=== PATIENT | female | born 1975 | race Caucasian/White ===

== ENCOUNTER 2017-06-01 16:15 | Emergency (ER) | payer MEDICAID ==
--- NOTE | 2017-06-01 16:55 | EDM.PDOC ---
ED HPI GENERAL MEDICAL PROBLEM - General Chief Complaint: Skin Complaint Stated Complaint: ORAL THRUSH Time Seen by Provider: 06/01/17 16:20 Source of Information: Reports: Patient History Limitations: Reports: No Limitations - History of Present Illness INITIAL COMMENTS - FREE TEXT/NARRATIVE: 41 YO WF presents to ER complaining of recurrence of her tinea corporis and oral thrush after taking an antibiotic recently. Pt reports she has been treated for this in the past and would like to be referred to a specialist for further evaluation and treatment. Pt denies any history of immunocompromise or chemotherapy. Pt denies any fever/chills. Duration: Day(s): (2) Location: Reports: Other (mouth, under arms and under breasts) Quality: Reports: Other (itching) Severity: Mild Improves with: Reports: None Worsens with: Reports: None Associated Symptoms: Reports: No Other Symptoms - Related Data Allergies Allergy/AdvReac Type Severity Reaction Status Date / Time No Known Drug Allergies Allergy Other Verified 08/03/16 17:48 Home Meds: Home Meds Cyclobenzaprine [Flexeril] 10 mg PO BEDTIME 03/24/14 [History] DULoxetine [Cymbalta] 60 mg PO DAILY 03/24/14 [History] Ibuprofen [Motrin] 600 mg PO Q6H PRN 03/24/14 [History] Pentosan Polysulfate Sodium [Elmiron] 100 mg PO TID 03/24/14 [History] Pregabalin [Lyrica] 150 mg PO BID 03/24/14 [History] SitaGLIPtin [Januvia] 100 mg PO DAILY 06/22/16 [History] Clotrimazole [Clotrimazole 1%] 15 gm .XX TID #1 tube 08/03/16 [Rx] Fluconazole [Diflucan] 100 mg PO DAILY #10 tablet 08/03/16 [Rx] Nystatin 30 gm TP TID #30 oint...g. 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, Polycystic Ovaries, , Spontaneous Musculoskeletal History: Reports: Fibromyalgia Neurological History: Reports: Headaches, Chronic, Migraines Psychiatric History: Reports: Antisocial Behaviors Endocrine/Metabolic History: Reports: Diabetes, Type II Hematologic History: Reports: Blood Transfusion(s) Dermatologic History: Reports: Other (See Below) Other Dermatologic History: yeast on bilateral breasts - Infectious Disease History Infectious Disease History: Reports: Chicken Pox - Past Surgical History Female Surgical History: Reports: Tubal Ligation Social & Family History - Family History Family Medical History: Noncontributory - Tobacco Use Smoking Status *Q: Current Every Day Smoker Years of Tobacco use: 15 Packs/Tins Daily: 0.3 Used Tobacco, but Quit: No Second Hand Smoke Exposure: No - Caffeine Use Caffeine Use: Reports: Soda - Alcohol Use Days Per Week of Alcohol Use: 0 - Recreational Drug Use Recreational Drug Use: No ED ROS GENERAL - Review of Systems Review Of Systems: See Below Constitutional: Reports: No Symptoms HEENT: Reports: Throat Pain Respiratory: Reports: No Symptoms Cardiovascular: Reports: No Symptoms Endocrine: Reports: No Symptoms GI/Abdominal: Reports: No Symptoms : Reports: No Symptoms Musculoskeletal: Reports: No Symptoms Skin: Reports: Rash (under arms and under breasts) Neurological: Reports: No Symptoms Psychiatric: Reports: No Symptoms Hematologic/Lymphatic: Reports: No Symptoms Immunologic: Reports: No Symptoms ED EXAM, SKIN/RASH Exam: See Below Exam Limited By: No Limitations General Appearance: Alert, WD/WN, No Apparent Distress Ears: Normal External Exam, Normal Canal, Hearing Grossly Normal, Normal TMs Nose: Normal Inspection, Normal Mucosa, No Blood Throat/Mouth: Normal Inspection, Normal Lips, Normal Teeth, Normal Gums, Normal Oropharynx, Normal Voice, No Airway Compromise Head: Atraumatic, Normocephalic Neck: Normal Inspection, Supple, Non-Tender, Full Range of Motion Respiratory/Chest: No Respiratory Distress, Lungs Clear, Normal Breath Sounds, No Accessory Muscle Use, Chest Non-Tender Cardiovascular: Normal Peripheral Pulses, Regular Rate, Rhythm, No Edema, No Gallop, No JVD, No Murmur, No Rub GI/Abdominal: Normal Bowel Sounds, Soft, Non-Tender, No Organomegaly, No Distention, No Abnormal Bruit, No Mass Back Exam: Normal Inspection, Full Range of Motion, NT Extremities: Normal Inspection, Normal Range of Motion, Non-Tender, No Pedal Edema, Normal Capillary Refill Neurological: Alert, Oriented, CN II-XII Intact, Normal Cognition, Normal Gait, Normal Reflexes, No Motor/Sensory Deficits Psychiatric: Normal Affect, Normal Mood Skin: Rash (papular erythemetous rash under arms and under breasts) Characteristics: Papular, Erythematous Lymphatic: No Adenopathy Departure - Departure Time of Disposition: 16:55 Disposition: Home, Self-Care 01 Condition: Good Clinical Impression: Tinea corporis, Thrush, oral - Discharge Information Prescriptions: Nystatin 60 ml PO TID #120 ml Nystatin 30 gm TP TID #30 oint...g. Referrals: Josh Okeefe MD [Primary Care Provider] - Forms: ED Department Discharge - Assessment/Plan Assessment:: 1. tinea corporis 2. oral thrush Plan: 1. nystatin swish and swallow 2. nystatin ointment 3. follow up with infectious disease or PCP for further evaluation and treatment 4. return to ER for fever or worsening symptoms
[2017-06-01 17:02] VITALS: BP 117/84
== END 2017-06-01 17:15 | disposition home or self-care (01) ==
LOC: KA.ED 16:15
DX: B35.4 Tinea corporis (principal); B37.0 Candidal stomatitis; E11.9 Type 2 diabetes mellitus without complications; Z79.4 Long term (current) use of insulin; F17.210 Nicotine dependence, cigarettes, uncomplicated; Z79.899 Other long term (current) drug therapy
CPT/HCPCS: 99282

== ENCOUNTER 2017-11-09 16:36 | Emergency (ER) | payer MEDICAID ==
[2017-11-09 16:47] VITALS: BP 146/87
--- NOTE | 2017-11-09 17:23 | EDM.PDOC ---
ED HPI GENERAL MEDICAL PROBLEM - General Chief Complaint: Upper Extremity Injury/Pain Stated Complaint: INFECTED R INDEX FINGER Time Seen by Provider: 11/09/17 16:45 Source of Information: Reports: Patient History Limitations: Reports: No Limitations - History of Present Illness INITIAL COMMENTS - FREE TEXT/NARRATIVE: 42 YO WF presents to ER complaining of pain to right index finger which began today. Pt denies any injury to finger. Pt reports woke today with pain and swelling to cuticle of right index finger. Pt was seen in clinic today and was given a "shot: (antibiotics?) and discharged on keflex 500mg PO Q6. Pt reports her pain became worse prompting ER evaluation. Pt denies fever/chills. Onset: Today Location: Reports: Upper Extremity, Right Quality: Reports: Ache Severity: Mild Improves with: Reports: None Worsens with: Reports: None Associated Symptoms: Reports: No Other Symptoms Treatments ULTRASOUND SPECIALIST: Reports: Other (see below) Other Treatments ULTRASOUND SPECIALIST: antibiotics Right 2-Index finger Pain Score (Numeric/FACES): 10 - Related Data Allergies Allergy/AdvReac Type Severity Reaction Status Date / Time No Known Drug Allergies Allergy Other Verified 11/09/17 16:45 Home Meds: Home Meds Cyclobenzaprine [Flexeril] 10 mg PO BEDTIME 03/24/14 [History] DULoxetine [Cymbalta] 60 mg PO DAILY 03/24/14 [History] Ibuprofen [Motrin] 600 mg PO Q6H PRN 03/24/14 [History] Pentosan Polysulfate Sodium [Elmiron] 100 mg PO TID 03/24/14 [History] Pregabalin [Lyrica] 150 mg PO BID 03/24/14 [History] SitaGLIPtin [Januvia] 100 mg PO DAILY 06/22/16 [History] Ibuprofen [Motrin] 600 mg PO Q6H PRN #20 tab 11/09/17 [Rx] traMADol [Ultram] 50 mg PO Q4H PRN #15 tab 11/09/17 [Rx] Past Medical History HEENT History: Reports: Impaired Vision Gastrointestinal History: Reports: GERD, Other (See Below) Other Gastrointestinal History: splenic rupture Genitourinary History: Reports: Other (See Below) Other Genitourinary History: insterstitial cystitis 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, Polycystic Ovaries, , Spontaneous Musculoskeletal History: Reports: Fibromyalgia Neurological History: Reports: Headaches, Chronic, Migraines Psychiatric History: Reports: Antisocial Behaviors Endocrine/Metabolic History: Reports: Diabetes, Type II Hematologic History: Reports: Blood Transfusion(s) Dermatologic History: Reports: Other (See Below) Other Dermatologic History: yeast on bilateral breasts - Infectious Disease History Infectious Disease History: Reports: Chicken Pox - Past Surgical History Head Surgeries/Procedures: Reports: None Female Surgical History: Reports: Tubal Ligation Social & Family History - Family History Family Medical History: Noncontributory - Tobacco Use Smoking Status *Q: Current Every Day Smoker Years of Tobacco use: 0 Packs/Tins Daily: 0 Used Tobacco, but Quit: No Second Hand Smoke Exposure: No - Caffeine Use Caffeine Use: Reports: Soda - Alcohol Use Days Per Week of Alcohol Use: 0 - Recreational Drug Use Recreational Drug Use: No Review of Systems - Review of Systems Review Of Systems: See Below Constitutional: Reports: No Symptoms Eyes: Reports: No Symptoms Ears: Reports: No Symptoms Nose: Reports: No Symptoms Mouth/Throat: Reports: No Symptoms Respiratory: Reports: No Symptoms Cardiovascular: Reports: No Symptoms GI/Abdominal: Reports: No Symptoms Genitourinary: Reports: No Symptoms Musculoskeletal: Reports: Hand Pain Skin: Reports: No Symptoms Neurological: Reports: No Symptoms Psychiatric: Reports: No Symptoms ED EXAM, GENERAL - Physical Exam Exam: See Below Exam Limited By: No Limitations General Appearance: Alert, WD/WN, No Apparent Distress Nose: Normal Inspection, Normal Mucosa, No Blood Throat/Mouth: Normal Inspection, Normal Lips, Normal Teeth, Normal Gums, Normal Oropharynx, Normal Voice, No Airway Compromise Head: Atraumatic, Normocephalic Neck: Normal Inspection, Supple, Non-Tender, Full Range of Motion Respiratory/Chest: No Respiratory Distress, Lungs Clear, Normal Breath Sounds, No Accessory Muscle Use, Chest Non-Tender Cardiovascular: Normal Peripheral Pulses, Regular Rate, Rhythm, No Edema, No Gallop, No JVD, No Murmur, No Rub GI/Abdominal: Normal Bowel Sounds, Soft, Non-Tender, No Organomegaly, No Distention, No Abnormal Bruit, No Mass Back Exam: Normal Inspection, Full Range of Motion, NT Neurological: Alert, Oriented, CN II-XII Intact, Normal Cognition, Normal Gait, Normal Reflexes, No Motor/Sensory Deficits Psychiatric: Normal Affect, Normal Mood Lymphatic: No Adenopathy (subungal hematoma and paronychia to right index finger ) ED TRAUMA EXTREMITY PROCEDURES - I&D Site: right index finger Skin Prep: Providone-Iodine (Betadine) Area Incised With: Needle Drainage: Bloody Sterile Dressinx4(s) Complications: No Course - Vital Signs Last Recorded V/S: Last Vital Signs Temp 36.8 C 11/09/17 16:40 Pulse 64 11/09/17 16:40 Resp 16 11/09/17 16:40 BP 146/87 H 11/09/17 16:40 Pulse Ox 95 11/09/17 16:40 Departure - Departure Time of Disposition: 17:33 Disposition: Home, Self-Care 01 Condition: Good Clinical Impression: Paronychia - Discharge Information Prescriptions: Ibuprofen [Motrin] 600 mg PO Q6H PRN #20 tab PRN Reason: Pain traMADol [Ultram] 50 mg PO Q4H PRN #15 tab PRN Reason: Pain Instructions: Paronychia, [id number] Referrals: Josh Okeefe MD [Primary Care Provider] - Additional Instructions: 1. continue antibiotics 2. ultram 50mg PO Q4-6 PRN pain 3. motrin 600mg PO Q6 PRn pain 4. follow up in clinic for further evaluation and treatment 5. return to ER for worsening symptoms - Assessment/Plan Assessment:: 1. Paronychia to right index finger Plan: 1. continue antibiotics 2. ultram 50mg PO Q4-6 PRN pain 3. motrin 600mg PO Q6 PRn pain 4. follow up in clinic for further evaluation and treatment 5. return to ER for worsening symptoms
[2017-11-09] MEDS ORDERED: Ketorolac 60 MG/2 ML SDV IM ONE (17:27)
== END 2017-11-09 17:35 | disposition home or self-care (01) ==
LOC: KA.ED 16:36
DX: L03.011 Cellulitis of right finger (principal); F17.210 Nicotine dependence, cigarettes, uncomplicated; K21.9 Gastro-esophageal reflux disease without esophagitis; E11.9 Type 2 diabetes mellitus without complications
CPT/HCPCS: 10060; 96372; 99283; J1885

== ENCOUNTER 2019-02-04 18:16 | Emergency (ER) | payer MEDICAID ==
--- NOTE | 2019-02-04 18:26 | EDM.PDOC ---
ED HPI GENERAL MEDICAL PROBLEM - General Chief Complaint: ENT Problem Stated Complaint: RIGHT EAR PAIN/BLEEDING Time Seen by Provider: 02/04/19 18:19 Source of Information: Reports: Patient History Limitations: Reports: No Limitations - History of Present Illness INITIAL COMMENTS - FREE TEXT/NARRATIVE: 43 YO WF presents to ER complaining of right ear pain which began yesterday. Pt reports some drainage from ear and it is becoming more tender when she uses her ear buds. Pt denies any recent URI. Pt denies any fever/chills, no dizziness, no nausea/vomiting. Onset Date: 02/03/19 Duration: Day(s): (2) Location: Reports: Other (right ear pain) Quality: Reports: Ache Severity: Mild Improves with: Reports: None Worsens with: Reports: None Associated Symptoms: Reports: No Other Symptoms - Related Data Allergies Allergy/AdvReac Type Severity Reaction Status Date / Time No Known Drug Allergies Allergy Other Verified 02/04/19 18:26 Home Meds: Home Meds Cyclobenzaprine [Flexeril] 10 mg PO BEDTIME 03/24/14 [History] DULoxetine [Cymbalta] 60 mg PO DAILY 03/24/14 [History] Pentosan Polysulfate Sodium [Elmiron] 100 mg PO TID 03/24/14 [History] Pregabalin [Lyrica] 150 mg PO BID 03/24/14 [History] SitaGLIPtin [Januvia] 100 mg PO DAILY 06/22/16 [History] Ibuprofen [Motrin] 600 mg PO Q6H PRN 02/04/19 [History] Past Medical History HEENT History: Reports: Impaired Vision Gastrointestinal History: Reports: GERD, Other (See Below) Other Gastrointestinal History: splenic rupture Genitourinary History: Reports: Other (See Below) Other Genitourinary History: insterstitial cystitis 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, Polycystic 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, , Spontaneous Musculoskeletal History: Reports: Fibromyalgia Neurological History: Reports: Headaches, Chronic, Migraines Psychiatric History: Reports: Antisocial Behaviors Endocrine/Metabolic History: Reports: Diabetes, Type II Hematologic History: Reports: Blood Transfusion(s) Dermatologic History: Reports: Other (See Below) Other Dermatologic History: yeast on bilateral breasts - Infectious Disease History Infectious Disease History: Reports: Chicken Pox - Past Surgical History Head Surgeries/Procedures: Reports: None Female Surgical History: Reports: Tubal Ligation Social & Family History - Family History Family Medical History: Noncontributory - Caffeine Use Caffeine Use: Reports: Soda ED ROS ENT - Review of Systems Review Of Systems: See Below Constitutional: Reports: No Symptoms HEENT: Reports: Ear Pain Respiratory: Reports: No Symptoms Cardiovascular: Reports: No Symptoms Endocrine: Reports: No Symptoms GI/Abdominal: Reports: No Symptoms : Reports: No Symptoms Musculoskeletal: Reports: No Symptoms Skin: Reports: No Symptoms Neurological: Reports: No Symptoms Psychiatric: Reports: No Symptoms Hematologic/Lymphatic: Reports: No Symptoms Immunologic: Reports: No Symptoms ED EXAM, ENT - Physical Exam Exam: See Below Exam Limited By: No Limitations General Appearance: Alert, WD/WN, No Apparent Distress Eye Exam: Bilateral Eye: PERRL Ears: Normal External Exam, Hearing Grossly Normal, Normal TMs, Canal Discharge. No: Normal Canal, Auricular Erythema, Auricular Ecchymosis, Auricular Tenderness, Mastoid Swelling, Mastoid Tenderness, Canal Blood, Canal Swelling Nose: Normal Inspection, Normal Mucousa, No Blood Mouth/Throat: Normal Inspection, Normal Gums, Normal Lips, Normal Oropharynx, Normal Teeth Head: Atraumatic, Normocephalic Neck: Normal Inspection, Supple, Non-Tender, Full Range of Motion Respiratory/Chest: No Respiratory Distress, Lungs Clear, Normal Breath Sounds, No Accessory Muscle Use, Chest Non-Tender Cardiovascular: Normal Peripheral Pulses, Regular Rate, Rhythm, No Edema, No Gallop, No JVD, No Murmur, No Rub GI/Abdominal: Normal Bowel Sounds, Soft, Non-Tender, No Organomegaly, No Distention, No Abnormal Bruit, No Mass Back: Normal Inspection, Full Range of Motion Extremities: Normal Inspection, Normal Range of Motion, Non-Tender, No Pedal Edema, Normal Capillary Refill Neurological: Alert, Oriented, CN II-XII Intact, Normal Cognition, Normal Gait, Normal Reflexes, No Motor/Sensory Deficits Psychiatric: Normal Affect, Normal Mood Skin: Warm, Dry, Intact, Normal Color, No Rash Lymphatic: No Adenopathy Departure - Departure Time of Disposition: 18:31 Disposition: Home, Self-Care 01 Condition: Good Clinical Impression: Otitis externa Qualifiers: Otitis externa type: unspecified type Chronicity: acute Laterality: right Qualified Code(s): H60.501 - Unspecified acute noninfective otitis externa, right ear - Discharge Information Instructions: Ear Drops, Adult, Otitis Externa, [id number] Referrals: Josh Okeefe MD [Primary Care Provider] - Forms: ED Department Discharge Additional Instructions: 1. discharge home 2. Cortisporin otic 3 drops Q4 x 7 days 3. follow up with PCP for further evaluation and treatment 4. return to ER for worsening symptoms - Assessment/Plan Assessment:: 1. right Otitis Externa Plan: 1. discharge home 2. Cortisporin otic 3 drops Q4 x 7 days 3. follow up with PCP for further evaluation and treatment 4. return to ER for worsening symptoms
[2019-02-04 18:47] VITALS: BP 107/77
[2019-02-04] MEDS: Hydrocortisone/Neomycin/Polymyxin B Otic Soln 10 ML Bottle EARRT SCH (18:53)
== END 2019-02-04 18:35 | disposition home or self-care (01) ==
LOC: KA.ED 18:16
DX: H60.501 Unspecified acute noninfective otitis externa, right ear (principal); Z79.899 Other long term (current) drug therapy
CPT/HCPCS: 99282; A9270-GY

== ENCOUNTER 2019-02-13 12:48 | Emergency (ER) | payer MEDICAID ==
[2019-02-13 13:02] VITALS: BP 106/71
[2019-02-13] MEDS ORDERED: Ibuprofen 600 MG Tab PO ONE (13:02)
[2019-02-13] MEDS ORDERED: diphenhydrAMINE 25 MG Cap PO ONE (13:02)
--- NOTE | 2019-02-13 13:09 | EDM.PDOC ---
ED HPI GENERAL MEDICAL PROBLEM - General Chief Complaint: General Stated Complaint: double ear infection Time Seen by Provider: 02/13/19 12:49 Source of Information: Reports: Patient History Limitations: Reports: No Limitations - History of Present Illness INITIAL COMMENTS - FREE TEXT/NARRATIVE: Patient is a 43-year-old female who presents to the emergency department this afternoon with a complaint of right ear pain. Patient was seen here on 2018 for same complaint. Patient was given Cortisporin otic with little relief for the first few days and now pain has returned. Patient admits to chronic ear bud use for listening pleasure. Patient denies fever, upper respiratory infection, nausea, vomiting, headache, dizziness, vision changes, out of country travel, or any trauma. Onset: Gradual Duration: Week(s): Location: Reports: Other (Right ear) Quality: Reports: Ache, Pressure Severity: Moderate Improves with: Reports: None Worsens with: Reports: None Associated Symptoms: Reports: No Other Symptoms. 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 (see below) Other Treatments SHOWER ENCLOSURE INSTALLER: ear drops - Related Data Allergies Allergy/AdvReac Type Severity Reaction Status Date / Time No Known Drug Allergies Allergy Other Verified 02/04/19 18:26 Home Meds: Home Meds Cyclobenzaprine [Flexeril] 10 mg PO BEDTIME 03/24/14 [History] DULoxetine [Cymbalta] 60 mg PO DAILY 03/24/14 [History] Pentosan Polysulfate Sodium [Elmiron] 100 mg PO TID 03/24/14 [History] Pregabalin [Lyrica] 150 mg PO BID 03/24/14 [History] SitaGLIPtin [Januvia] 100 mg PO DAILY 06/22/16 [History] Ibuprofen [Motrin] 600 mg PO Q6H PRN 02/04/19 [History] Amoxicillin/Clavulanate K [Augmentin 875-125 MG] 1 tab PO BID #14 tablet [Rx] Neomycin/Polymyxin B Sulf/HC [Sowtjyrr-[id number]-Hc Ear Susp] 3 drop EARBOTH QID 02/13/19 [History] Past Medical History HEENT History: Reports: Impaired Vision Gastrointestinal History: Reports: GERD, Other (See Below) Other Gastrointestinal History: splenic rupture Genitourinary History: Reports: Other (See Below) Other Genitourinary History: insterstitial cystitis 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, Polycystic 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, , 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 Musculoskeletal History: Reports: Fibromyalgia Neurological History: Reports: Headaches, Chronic, Migraines Psychiatric History: Reports: Antisocial Behaviors Endocrine/Metabolic History: Reports: Diabetes, Type II Hematologic History: Reports: Blood Transfusion(s) Dermatologic History: Reports: Other (See Below) Other Dermatologic History: yeast on bilateral breasts - Infectious Disease History Infectious Disease History: Reports: Chicken Pox - Past Surgical History Head Surgeries/Procedures: Reports: None Female Surgical History: Reports: Tubal Ligation Social & Family History - Family History Family Medical History: Noncontributory - Caffeine Use Caffeine Use: Reports: Soda ED ROS GENERAL - Review of Systems Review Of Systems: ROS reveals no pertinent complaints other than HPI. Constitutional: Reports: No Symptoms HEENT: Reports: Ear Pain (Right). Denies: Ear Discharge, Sinus Problem Respiratory: Reports: No Symptoms Cardiovascular: Reports: No Symptoms Endocrine: Reports: No Symptoms GI/Abdominal: Reports: No Symptoms : Reports: No Symptoms Musculoskeletal: Reports: No Symptoms Skin: Reports: No Symptoms Neurological: Reports: No Symptoms Psychiatric: Reports: No Symptoms Hematologic/Lymphatic: Reports: No Symptoms Immunologic: Reports: No Symptoms ED EXAM, GENERAL - Physical Exam Exam: See Below Exam Limited By: No Limitations General Appearance: Alert, WD/WN, No Apparent Distress Eye Exam: Bilateral Eye: Normal Inspection Ears: Normal External Exam, Other (No mastoid tenderness or erythema noted) Ear Exam: Right Ear: TM Red, Left Ear: Canal Normal, TM normal, Bilateral Ear: Auricle Normal Nose: Normal Inspection, Normal Mucosa, No Blood Throat/Mouth: Normal Inspection, Normal Oropharynx, No Airway Compromise Head: Atraumatic, Normocephalic Neck: Normal Inspection, Supple, Non-Tender. No: Lymphadenopathy (L), Lymphadenopathy (R) Respiratory/Chest: No Respiratory Distress, Lungs Clear, Normal Breath Sounds Cardiovascular: Regular Rate, Rhythm, No Murmur GI/Abdominal: Normal Bowel Sounds, Soft Extremities: Normal Inspection Neurological: Alert, Oriented, Normal Cognition Psychiatric: Normal Affect, Normal Mood Skin Exam: Warm, Dry, Intact, Normal Color, No Rash Lymphatic: No Adenopathy Course - Vital Signs Last Recorded V/S: Last Vital Signs Temp 97.4 F 02/13/19 12:58 Pulse 75 02/13/19 12:58 Resp 18 02/13/19 12:58 BP 106/71 02/13/19 12:58 Pulse Ox 92 L 02/13/19 12:58 - Orders/Labs/Meds Meds: Medications Discontinued Medications Generic Name Dose Route Start Last Admin Trade Name German PRN Reason Stop Dose Admin Diphenhydramine HCl 25 mg 02/13/19 13:02 Benadryl PO 02/13/19 13:03 ONETIME ONE Ibuprofen 600 mg 02/13/19 13:02 Motrin PO 02/13/19 13:03 ONETIME ONE - Re-Assessments/Exams Free Text/Narrative Re-Assessment/Exam: 02/13/19 13:12 Patient afebrile, nontoxic appearing, vital signs stable. Patient given 25 mg Benadryl in ER. Prescription for Augmentin 875 twice a day for 7 days. Patient will recheck in 2-3 days in the clinic Departure - Departure Time of Disposition: 13:12 Disposition: Home, Self-Care 01 Condition: Good Clinical Impression: Otitis media Qualifiers: Otitis media type: unspecified Chronicity: subacute Qualified Code(s): H66.90 - Otitis media, unspecified, unspecified ear - Discharge Information Instructions: Otitis Media, Adult, [id number], Ear Drops, Adult, [id number] Referrals: Josh Okeefe MD [Primary Care Provider] - Additional Instructions: Follow-up at [facility] in next 2-3 days. Continue with eardrops and take oral medication as prescribed. Take Benadryl for pressure relief. Return to emergency department sooner if symptoms continue or worsen. - Assessment/Plan Assessment:: Right otitis media Plan: Follow-up with PCP in 2-3 days
== END 2019-02-13 13:35 | disposition home or self-care (01) ==
LOC: KA.ED 12:48
DX: H66.91 Otitis media, unspecified, right ear (principal); K21.9 Gastro-esophageal reflux disease without esophagitis; E11.9 Type 2 diabetes mellitus without complications; Z79.899 Other long term (current) drug therapy
CPT/HCPCS: 99282; A9270

== ENCOUNTER 2022-08-12 22:07 | Emergency (ER) | payer MEDICAID ==
[2022-08-12 22:25] VITALS: BP 116/78; PULSE 68
[2022-08-12] MEDS: Mupirocin Oint 22 GM Tube TOP ONE (22:45)
== END 2022-08-12 23:09 | disposition home or self-care (01) ==
LOC: KA.ED 22:07
DX: L73.9 Follicular disorder, unspecified (principal); E11.9 Type 2 diabetes mellitus without complications
CPT/HCPCS: 99283

== ENCOUNTER 2023-02-16 13:59 | Emergency (ER) | payer MEDICAID ==
[2023-02-16 14:08] VITALS: BP 129/83; PULSE 69
[2023-02-16] MEDS: Ketorolac 30 MG/ML SDV IM SCH (14:20)
[2023-02-16] MEDS: Acetaminophen/HYDROcodone 325-5 MG Tab PO ONE (15:50)
== END 2023-02-16 15:55 | disposition home or self-care (01) ==
LOC: KA.ED 13:59
DX: M54.16 Radiculopathy, lumbar region (principal); E11.9 Type 2 diabetes mellitus without complications; E66.9 Obesity, unspecified; Z68.29 Body mass index [BMI] 29.0-29.9, adult; Z79.84 Long term (current) use of oral hypoglycemic drugs; Z79.899 Other long term (current) drug therapy
CPT/HCPCS: 72131; 96372; 99283; 99284; A9270-GY; J1885

== ENCOUNTER 2023-08-19 10:33 | Emergency (ER) | payer MEDICAID ==
[2023-08-19] MEDS ORDERED: Sodium Chloride 0.9% 10 ML Syringe FLUSH PRN (10:51)
[2023-08-19 10:57] LABS: BASOPHILS ABSOLUTE AUTO 0.01 10^3/uL (0.00-0.10); BASOPHILS PERCENT AUTO 0.2 % (0.0-1.0); EOSINOPHILS ABSOLUTE AUTO 0.01 10^3/uL (0.10-0.30); EOSINOPHILS PERCENT AUTO 0.2 % (1.0-3.0); HEMATOCRIT 41.9 % (37.0-47.0); HEMOGLOBIN 14.1 g/dL (12.0-16.0); IMMATURE GRAN ABSOLUTE AUTO 0.01 10^3/uL (0.00-0.50); IMMATURE GRAN PERCENT AUTO 0.2 % (0.0-5.0); LYMPHOCYTES ABSOLUTE AUTO 0.31 10^3/uL (1.00-4.00); LYMPHOCYTES PERCENT AUTO 4.9 % (20.0-40.0); MEAN CORPUSCULAR HEMOGLOBIN 31.8 pg (27.0-31.0); MEAN CORPUSCULAR HGB CONC 33.7 g/dL (32.0-36.0); MEAN CORPUSCULAR VOLUME 94.4 fL (82.0-92.0); MEAN PLATELET VOLUME 10.4 fL (7.4-10.4); MONOCYTES ABSOLUTE AUTO 0.48 10^3/uL (0.10-0.80); MONOCYTES PERCENT AUTO 7.6 % (2.0-8.0); NEUTROPHILS ABSOLUTE AUTO 5.47 10^3/uL (2.50-7.00); NEUTROPHILS PERCENT AUTO 86.9 % (50.0-70.0); PLATELET COUNT,PLT 177 10^3/uL (150-400); RED BLOOD CELL COUNT 4.44 10^6/uL (3.80-5.50); WHITE BLOOD CELL COUNT,WBC 6.29 10^3/uL (5.00-10.00)
[2023-08-19 11:02] VITALS: PULSE 63
[2023-08-19 11:08] LABS: ALBUMIN 3.49 g/dL (3.40-5.00); ANION GAP 15.1 mmol/L (5-15); BILIRUBIN TOTAL 0.3 mg/dL (0.2-1.0); CALCIUM 8.1 mg/dL (8.7-10.3); CARBON DIOXIDE,CO2 23.6 mmol/L (21.0-32.0); CREATININE 0.96 mg/dL (0.51-1.17); EST CRCL DRUG DOSING (CG) 67.22 mL/min; POTASSIUM,K 3.7 mmol/L (3.5-5.1); PROTEIN TOTAL,TP 6.8 g/dL (6.4-8.2)
[2023-08-19 11:37] LABS: CORONAVIRUS COVID-19 NAA NEGATIVE (NEGATIVE); INFLUENZA A NAA POSITIVE (NEGATIVE); INFLUENZA B NAA NEGATIVE (NEGATIVE); RESPIRATORY SYNCYTIAL VIR NAA NEGATIVE (NEGATIVE)
[2023-08-19 12:53] VITALS: BP 106/55
== END 2023-08-19 12:05 | disposition home or self-care (01) ==
LOC: KA.ED 10:33
DX: J10.1 Influenza due to other identified influenza virus with other respiratory manifestations (principal); J40 Bronchitis, not specified as acute or chronic; E11.9 Type 2 diabetes mellitus without complications; E66.9 Obesity, unspecified; Z68.33 Body mass index [BMI] 33.0-33.9, adult; Z79.899 Other long term (current) drug therapy; Z90.49 Acquired absence of other specified parts of digestive tract; Z20.822 Contact with and (suspected) exposure to COVID-19
CPT/HCPCS: 0241U; 36415; 71046; 80053; 83605; 84484; 85025; 99285

== ENCOUNTER 2024-11-01 18:21 | Emergency (ER) | payer MEDICAID ==
[2024-11-01 18:41] VITALS: BP 123/68; PULSE 79
[2024-11-01] MEDS: Ketorolac 30 MG/ML SDV IVPUSH ONE (19:12)
[2024-11-01] MEDS: Albuterol/Ipratropium 3.0-0.5 MG/3 ML Neb Soln NEB ONE ×2 (19:13→19:53)
[2024-11-01] MEDS: methylPREDNISolone Sodium Succinate 125 MG/2 ML SDV IVPUSH ONE (19:13)
== END 2024-11-01 20:10 | disposition home or self-care (01) ==
LOC: KA.ED 18:21
DX: J42 Unspecified chronic bronchitis (principal); F17.210 Nicotine dependence, cigarettes, uncomplicated; K21.9 Gastro-esophageal reflux disease without esophagitis; Z79.899 Other long term (current) drug therapy
CPT/HCPCS: 71046; 87428-QW; 96374; 96375; 99284-25; A9270-GY; J1885; J2919

== ENCOUNTER 2025-02-04 18:24 | Emergency (ER) | payer MEDICAID ==
[2025-02-04 18:57] LABS: APPEARANCE,URINE CLEAR (CLEAR); BILIRUBIN,URINE NEGATIVE (NEGATIVE); COLOR,URINE YELLOW (YELLOW); GLUCOSE,URINE NEGATIVE (NEGATIVE); KETONES,URINE NEGATIVE (NEGATIVE); LEUKOCYTE ESTERASE,URINE TRACE (NEGATIVE); NITRITE,URINE NEGATIVE (NEGATIVE); OCCULT BLOOD,URINE MODERATE (NEGATIVE); PH,URINE 6.5 (5.0-9.0); PROTEIN,URINE NEGATIVE (NEGATIVE); UROBILINOGEN,URINE 0.2 E.U./dL (0.2-1.0)
[2025-02-04 19:05] LABS: BACTERIA,URINE FEW /HPF (NONE TO FEW); EPITHELIAL CELLS,URINE FEW /LPF; OTHER CRYSTALS,URINE RARE /HPF; RBC,URINE 0-5 /HPF (0-5)
[2025-02-04] MEDS: Sulfamethoxazole/Trimethoprim 800-160 MG Tab PO ONE (19:46)
[2025-02-04 19:51] VITALS: BP 123/83; PULSE 73
== END 2025-02-04 19:50 | disposition home or self-care (01) ==
LOC: KA.ED 18:24
DX: N39.0 Urinary tract infection, site not specified (principal); K21.9 Gastro-esophageal reflux disease without esophagitis; E11.9 Type 2 diabetes mellitus without complications; Z79.899 Other long term (current) drug therapy; Z79.51 Long term (current) use of inhaled steroids
CPT/HCPCS: 81001; 81515; 87086; 87088; 99283; 99284; A9270-GY

== ENCOUNTER 2025-05-21 14:26 | Emergency (ER) | payer MEDICAID ==
[2025-05-21] MEDS ORDERED: Sodium Chloride 0.9% 10 ML Syringe FLUSH PRN (14:41)
[2025-05-21 14:57] LABS: BASOPHILS ABSOLUTE AUTO 0.03 10^3/uL (0.00-0.10); BASOPHILS PERCENT AUTO 0.4 % (0.0-1.0); EOSINOPHILS ABSOLUTE AUTO 0.29 10^3/uL (0.10-0.30); EOSINOPHILS PERCENT AUTO 3.8 % (1.0-3.0); IMMATURE GRAN ABSOLUTE AUTO 0.01 10^3/uL (0.00-0.04); IMMATURE GRAN PERCENT AUTO 0.1 % (0.0-0.4); LYMPHOCYTES ABSOLUTE AUTO 1.94 10^3/uL (1.00-4.00); LYMPHOCYTES PERCENT AUTO 25.7 % (20.0-40.0); MEAN PLATELET VOLUME 10.1 fL (7.4-10.4); MONOCYTES ABSOLUTE AUTO 0.51 10^3/uL (0.10-0.80); MONOCYTES PERCENT AUTO 6.7 % (2.0-8.0); NEUTROPHILS ABSOLUTE AUTO 4.78 10^3/uL (2.50-7.00); NEUTROPHILS PERCENT AUTO 63.3 % (50.0-70.0); PLATELET COUNT,PLT 213 10^3/uL (150-400); RED BLOOD CELL COUNT 4.75 10^6/uL (3.80-5.50); RED CELL DISTRIBUTION WIDTH 12.6 % (11.5-14.5); WHITE BLOOD CELL COUNT,WBC 7.56 10^3/uL (5.00-10.00)
[2025-05-21 15:16] LABS: BLOOD UREA NITROGEN,BUN 10 mg/dL (7-18); CARBON DIOXIDE,CO2 27.3 mmol/L (21.0-32.0); CHLORIDE,CL 105 mmol/L (98-107); CREATININE 0.89 mg/dL (0.51-1.17); EST CRCL DRUG DOSING (CG) 74.57 mL/min; GLUCOSE RANDOM 118 mg/dL (70-140); POTASSIUM,K 4.2 mmol/L (3.5-5.1); SODIUM,NA 141 mmol/L (136-145)
[2025-05-21 15:17] LABS: ESTIMATED GFR 80 mL/min (>=60)
[2025-05-21 16:00] VITALS: BP 131/85; PULSE 61
== END 2025-05-21 15:35 | disposition home or self-care (01) ==
LOC: KA.ED 14:30
DX: R00.2 Palpitations (principal); F17.200 Nicotine dependence, unspecified, uncomplicated; E11.9 Type 2 diabetes mellitus without complications; Z79.899 Other long term (current) drug therapy; Z90.49 Acquired absence of other specified parts of digestive tract
CPT/HCPCS: 71045; 80048; 84484; 85025; 99285

== ENCOUNTER 2025-06-08 16:42 | Emergency (ER) | payer MEDICAID ==
[2025-06-08 16:52] LABS: GLUCOSE,URINE NEGATIVE (NEGATIVE); OCCULT BLOOD,URINE MODERATE (NEGATIVE)
[2025-06-08 17:00] LABS: APPEARANCE,URINE CLOUDY (CLEAR)
[2025-06-08 17:01] LABS: EPITHELIAL CELLS,URINE RARE /LPF
[2025-06-08 17:46] VITALS: BP 129/88; PULSE 76
== END 2025-06-08 17:24 | disposition home or self-care (01) ==
LOC: KA.ED 16:42
DX: N30.90 Cystitis, unspecified without hematuria (principal); E66.9 Obesity, unspecified; E11.9 Type 2 diabetes mellitus without complications; Z79.899 Other long term (current) drug therapy; Z90.49 Acquired absence of other specified parts of digestive tract; Z68.30 Body mass index [BMI] 30.0-30.9, adult
CPT/HCPCS: 81001; 87086; 87088; 99283